=== PATIENT | female | born 1945 | race Caucasian/White ===

== ENCOUNTER → 2018-07-01 | Outpatient (REF) ==
[2018-07-01 10:06] LABS: HEMATOCRIT 30.4 % (36.0-47.0); HEMOGLOBIN 9.4 g/dl (12.0-15.5); MEAN CORPUSCULAR HEMOGLOBIN 27.1 pg (27.0-33.0); MEAN CORPUSCULAR HGB CONC 30.9 g/dl (32.0-36.5); MEAN CORPUSCULAR VOLUME 87.6 fl (80.0-96.0); PLATELET COUNT, AUTOMATED 248 10^3/uL (150-450); RED BLOOD COUNT 3.47 10^6/uL (4.00-5.40); RED CELL DISTRIBUTION WIDTH 14.2 % (11.5-14.5); WHITE BLOOD COUNT 14.1 10^3/uL (4.0-10.0)
[2018-07-01 10:47] LABS: ANION GAP 8 MEQ/L (8-16); BLOOD UREA NITROGEN 8 MG/DL (7-18); CALCIUM LEVEL 8.7 MG/DL (8.8-10.2); CARBON DIOXIDE LEVEL 38 MEQ/L (21-32); CHLORIDE LEVEL 97 MEQ/L (98-107); CREATININE FOR GFR 0.98 MG/DL (0.55-1.30); GLOMERULAR FILTRATION RATE 59.4 (>39); GLUCOSE, FASTING 109 MG/DL (70-100); POTASSIUM SERUM 3.1 MEQ/L (3.5-5.1); SODIUM LEVEL 143 MEQ/L (136-145)
== END ==
DX: I21.4 Non-ST elevation (NSTEMI) myocardial infarction (principal)

== ENCOUNTER → 2018-07-02 | Outpatient (REF) ==
[2018-07-02 09:45] LABS: HEMATOCRIT 30.8 % (36.0-47.0); HEMOGLOBIN 9.4 g/dl (12.0-15.5); MEAN CORPUSCULAR HEMOGLOBIN 26.3 pg (27.0-33.0); MEAN CORPUSCULAR HGB CONC 30.5 g/dl (32.0-36.5); PLATELET COUNT, AUTOMATED 261 10^3/uL (150-450); RED BLOOD COUNT 3.58 10^6/uL (4.00-5.40); RED CELL DISTRIBUTION WIDTH 14.4 % (11.5-14.5); WHITE BLOOD COUNT 8.7 10^3/uL (4.0-10.0)
[2018-07-02 10:41] LABS: ANION GAP 6 MEQ/L (8-16); BLOOD UREA NITROGEN 10 MG/DL (7-18); CALCIUM LEVEL 8.9 MG/DL (8.8-10.2); CARBON DIOXIDE LEVEL 40 MEQ/L (21-32); CHLORIDE LEVEL 96 MEQ/L (98-107); CREATININE FOR GFR 1.06 MG/DL (0.55-1.30); GLOMERULAR FILTRATION RATE 54.2 (>39); GLUCOSE, FASTING 69 MG/DL (70-100); POTASSIUM SERUM 3.8 MEQ/L (3.5-5.1); SODIUM LEVEL 142 MEQ/L (136-145)
== END ==
DX: D72.829 Elevated white blood cell count, unspecified (principal)

== ENCOUNTER → 2018-07-04 | Outpatient (REF) | payer MEDICARE, OTHER ==
[2018-07-04 18:33] LABS: HEMATOCRIT 30.1 % (36.0-47.0); MEAN CORPUSCULAR HEMOGLOBIN 26.5 pg (27.0-33.0); MEAN CORPUSCULAR HGB CONC 29.9 g/dl (32.0-36.5); MEAN CORPUSCULAR VOLUME 88.5 fl (80.0-96.0); PLATELET COUNT, AUTOMATED 241 10^3/uL (150-450); WHITE BLOOD COUNT 6.8 10^3/uL (4.0-10.0)
[2018-07-04 18:48] LABS: CALCIUM LEVEL 8.4 MG/DL (8.8-10.2); CREATININE FOR GFR 1.53 MG/DL (0.55-1.30); GLOMERULAR FILTRATION RATE 35.5 (>39); POTASSIUM SERUM 5.4 MEQ/L (3.5-5.1)
== END ==
PROVIDERS: ATTEND Internal Medicine
DX: R73.9 Hyperglycemia, unspecified (principal)

== ENCOUNTER → 2018-07-05 | Outpatient (REF) ==
[2018-07-05 10:11] LABS: ANION GAP 7 MEQ/L (8-16); BLOOD UREA NITROGEN 14 MG/DL (7-18); CALCIUM LEVEL 8.9 MG/DL (8.8-10.2); CARBON DIOXIDE LEVEL 36 MEQ/L (21-32); CHLORIDE LEVEL 91 MEQ/L (98-107); CREATININE FOR GFR 1.43 MG/DL (0.55-1.30); GLOMERULAR FILTRATION RATE 38.4 (>39); GLUCOSE, FASTING 354 MG/DL (70-100); POTASSIUM SERUM 4.5 MEQ/L (3.5-5.1); SODIUM LEVEL 134 MEQ/L (136-145)
== END ==
DX: D64.9 Anemia, unspecified (principal)

== ENCOUNTER → 2018-07-08 | Outpatient (REF) ==
[2018-07-08 12:01] LABS: HEMATOCRIT 31.6 % (36.0-47.0); HEMOGLOBIN 9.7 g/dl (12.0-15.5); MEAN CORPUSCULAR HEMOGLOBIN 26.6 pg (27.0-33.0); MEAN CORPUSCULAR HGB CONC 30.7 g/dl (32.0-36.5); MEAN CORPUSCULAR VOLUME 86.6 fl (80.0-96.0); PLATELET COUNT, AUTOMATED 304 10^3/uL (150-450); RED BLOOD COUNT 3.65 10^6/uL (4.00-5.40); RED CELL DISTRIBUTION WIDTH 15.3 % (11.5-14.5); WHITE BLOOD COUNT 8.3 10^3/uL (4.0-10.0)
[2018-07-08 12:34] LABS: ANION GAP 7 MEQ/L (8-16); BLOOD UREA NITROGEN 21 MG/DL (7-18); CALCIUM LEVEL 8.7 MG/DL (8.8-10.2); CARBON DIOXIDE LEVEL 33 MEQ/L (21-32); CHLORIDE LEVEL 100 MEQ/L (98-107); GLOMERULAR FILTRATION RATE 31.5 (>39); GLUCOSE, FASTING 189 MG/DL (70-100); POTASSIUM SERUM 4.6 MEQ/L (3.5-5.1); SODIUM LEVEL 140 MEQ/L (136-145)
== END ==
DX: I21.4 Non-ST elevation (NSTEMI) myocardial infarction (principal)

== ENCOUNTER → 2018-07-15 | Outpatient (REF) ==
[2018-07-15 10:41] LABS: HEMATOCRIT 34.7 % (36.0-47.0); HEMOGLOBIN 10.5 g/dl (12.0-15.5); MEAN CORPUSCULAR HEMOGLOBIN 26.6 pg (27.0-33.0); MEAN CORPUSCULAR HGB CONC 30.3 g/dl (32.0-36.5); MEAN CORPUSCULAR VOLUME 88.1 fl (80.0-96.0); PLATELET COUNT, AUTOMATED 374 10^3/uL (150-450); RED BLOOD COUNT 3.94 10^6/uL (4.00-5.40); WHITE BLOOD COUNT 7.4 10^3/uL (4.0-10.0)
[2018-07-15 10:59] LABS: ANION GAP 7 MEQ/L (8-16); BLOOD UREA NITROGEN 14 MG/DL (7-18); CALCIUM LEVEL 9.1 MG/DL (8.8-10.2); CARBON DIOXIDE LEVEL 30 MEQ/L (21-32); CHLORIDE LEVEL 105 MEQ/L (98-107); CREATININE FOR GFR 1.35 MG/DL (0.55-1.30); GLUCOSE, FASTING 44 MG/DL (70-100); POTASSIUM SERUM 4.5 MEQ/L (3.5-5.1); SODIUM LEVEL 142 MEQ/L (136-145)
== END ==
DX: I21.4 Non-ST elevation (NSTEMI) myocardial infarction (principal)

== ENCOUNTER → 2018-10-24 | Outpatient (CLI) | payer MEDICARE, OTHER ==
--- NOTE | 2018-10-24 10:30 | REP ---
Clinical: Dyspnea. Technique: PA and lateral. Comparison: None. Findings: Cardiomegaly is suggested along with diffuse increased interstitial markings, cephalization, indistinct pulmonary vasculature, bibasilar opacities, and small to moderate pleural effusions (left greater than right). Findings most compatible with CHF and pulmonary edema. Differential diagnosis includes multifocal pneumonia. Skeletal structures demonstrate age-related osteopenia and degenerative change. Impression: Findings most compatible with CHF and pulmonary edema. Differential diagnosis includes multifocal pneumonia. Electronically Signed by Andrés Malone MD 10/24/2018 10:20 A
== END ==
LOC: M SMT 09:48
PROVIDERS: ATTEND Nurse Practitioner Family
DX: R91.8 Other nonspecific abnormal finding of lung field (principal); R06.00 Dyspnea, unspecified

== ENCOUNTER → 2018-11-09 | Outpatient (CLI) | payer MEDICARE, OTHER ==
--- NOTE | 2018-11-11 16:31 | SLEEPCENT ---
DATE OF PROCEDURE: 11/09/2018 ORDERED BY: CARINE Novak Nocturnal polysomnography was performed for evaluation of sleep physiology in this patient with a history of excessive somnolence and nonrestorative sleep. Testing was performed on oxygen at 3 liters per minute via nasal cannula. 7 hours and 54 minutes of data were reviewed. There were 273 minutes of sleep identified. Sleep latency was normal at 40 minutes. Rapid eye movement (REM) sleep delayed at 257 minutes. Sleep architecture was fragmented. Overall sleep efficiency was 58.1%. The electrocardiogram showed what appeared to be a sinus rhythm with premature ventricular contractions (PVCs). Average heart rate 62 beats per minute. EEG showed fairly normal waveforms for awake and sleep. There were only 9 respiratory events identified of 10 seconds in duration or greater for an apnea-hypopnea index of 2. Snoring was noted over the course of the study and respiratory related arousals occurred 9.2 times per hour. Significant limb activity was noted. With 4 trains of 30 events limb movement arousal index was 16.9. Snoring was noted during the test but no significant oxygen desaturations with 3 liters of oxygen. IMPRESSION: 1. Periodic limb movement disorder (G47.61). Limb movement arousal index 16.9 pressure. 2. Snoring. RECOMMENDATIONS: Interventions to reduce the frequency arousals from limb activity should improve the quality of the patient's sleep. MAXIMOD
== END ==
LOC: M SLEEP 20:00
PROVIDERS: ATTEND Nurse Practitioner Family
DX: R40.0 Somnolence (principal); R06.83 Snoring; G47.61 Periodic limb movement disorder

== ENCOUNTER → 2018-12-18 | Outpatient (CLI) | payer MEDICARE, OTHER ==
--- NOTE | 2018-12-24 14:34 | SLEEPCENT ---
DATE OF STUDY: 12/18/1989 ORDERING PROVIDER: CARINE Novak Nocturnal polysomnography was performed for the titration of pressure therapy in this patient with obstructive sleep apnea syndrome. Apnea-hypopnea index 6.5. For testing, a [employer] Simplus full face mask of small size was used. 4 cm of water pressure were applied to the circuit, and the lights were extinguished. 7 hours and 23 minutes of data were reviewed. There were 223 minutes of sleep identified. Sleep latency was prolonged at 96 minutes. The patient did not achieve rapid eye movement (REM) sleep. Sleep architecture was poor early in the study, improved later in the test but with persistence of fragmentation. Overall sleep efficiency was 51.7%. The patient's electrocardiogram showed a sinus rhythm with an average heart rate of 60 beats per minute. Electroencephalogram (EEG) showed normal waveforms for awake and sleep. Respiratory events were fully palliated with continuous positive airway pressure (CPAP) at a pressure of 14. Persistent oxygen desaturations seen at that level prompted the addition of supplemental oxygen. Best sleep was seen on a CPAP pressure at 14 with 2 liters of oxygen bled through the system. There was significant limb activity noted. Two trains of 30 events and a limb movement arousal index of 13.2. IMPRESSION: Obstructive sleep apnea syndrome (G47.33) RECOMMENDATION: Nightly use of pressure therapy, 14 cm of water with 2 liters of oxygen bled through the system to address hypoventilatory oxygen desaturation.
== END ==
LOC: M SLEEP 19:33
PROVIDERS: ATTEND Nurse Practitioner Family
DX: G47.33 Obstructive sleep apnea (adult) (pediatric) (principal)

== ENCOUNTER → 2019-04-16 | Outpatient (REF) | payer MEDICARE, OTHER | LOC: M SMT 17:21 | PROVIDERS: ATTEND Urology | DX: N12 Tubulo-interstitial nephritis, not specified as acute or chronic (principal) | CPT/HCPCS: 81002; 87086; G0463 ==

== ENCOUNTER → 2019-05-08 | Outpatient (REF) | payer MEDICARE, OTHER ==
[~2019-05-08] MED LIST: ASPI81TA85 PO; BUME2TAB3 PO; CALCCHW4 PO; FERR325T16 PO; FLUO40CA PO; LANTINJ4 SC; LISI-538 PO; MELA5CAP2 PO; METO50TA7 PO; NOVO70VL SC; PRAV40TA2 PO; SPIR-10 PO
[2019-05-08 18:20] LABS: FERRITIN 31 NG/ML (8-252); FOLATE 7.3 NG/ML; IRON (FE) 27 UG/DL (50-170); PERCENT SATURATION 7.3 % (13.2-45.0); TOTAL IRON BINDING CAPACITY 371 UG/DL (250-450); VITAMIN B12 LEVEL 249 PG/ML
[2019-05-08 18:29] LABS: TOTAL PROTEIN,RANDOM URINE 113.3 MG/DL (0.0-12.0); URINE TOTAL PROTEIN 113.3 MG/DL (0-12)
[2019-05-09 08:25] LABS: URINE VOLUME RANDOM ML
[2019-05-11 10:42] LABS: HEPATITIS B SURFACE ANTIBODY NEGATIVE (POSITIVE)
[2019-05-11 10:52] LABS: HEPATITIS B SURFACE ANTIGEN NEGATIVE (NEGATIVE)
[2019-05-11 11:19] LABS: HEPATITIS C VIRUS ABY INDEX 0.1 INDEX (<0.8)
[2019-05-11 11:20] LABS: HEPATITIS B CORE ANTIBODY IGM NEGATIVE (NEGATIVE)
[2019-05-12 11:02] LABS: ALBUMIN 3.25 GM/DL (3.29-5.55); ALBUMIN % 54.2 % (55.8-66.1); ALPHA-1-GLOBULIN % 6.9 % (2.9-4.9); ALPHA-1-GLOBULINS 0.41 GM/DL (0.17-0.41); ALPHA-2-GLOBULINS 0.72 GM/DL (0.42-0.99); BETA-1-GLOBULINS 0.43 GM/DL (0.28-0.60); BETA-1-GLOBULINS % 7.2 % (4.7-7.2); BETA-2-GLOBULINS 0.26 GM/DL (0.19-0.55); BETA-2-GLOBULINS % 4.3 % (3.2-6.5); GAMMA GLOBULIN % 15.4 % (11.1-18.8); GAMMA GLOBULINS 0.92 GM/DL (0.65-1.58)
[2019-05-14 13:51] LABS: UPEP INTERPRETATION NO M-SPIKE NOTED
[2019-05-16 00:06] LABS: ANCA-ATYPICAL <1:20 titer (Neg:<1:20); ANTI-GLOMERULAR BASEMENT MEMB 6 units (0-20); ANTINUCLEAR ANTIBODIES DIRECT Negative (Negative); CYTOPLASMIC NEUTROP AB ANCA-C <1:20 titer (Neg:<1:20); PERINUCLEAR AB ANCA-P <1:20 titer (Neg:<1:20)
== END ==
LOC: M LAB REF 16:55
PROVIDERS: ATTEND Internal Medicine Nephrology
DX: R80.9 Proteinuria, unspecified (principal); D64.9 Anemia, unspecified

== ENCOUNTER 2019-05-18 09:34 | Outpatient (CLI) | payer MEDICARE, OTHER ==
[2019-05-18] VITALS (8 sets, daily range): BP systolic 130–177; BP diastolic 55–77
[~2019-05-18] VITALS: Ht 170.2 cm; Wt 143.5 kg
[2019-05-18] MEDS ORDERED: CALCCHW4 PO (10:48)
[2019-05-18] MEDS ORDERED: MELA5CAP2 PO (10:48)
[2019-05-18] MEDS ORDERED: BUME2TAB3 PO (10:48)
[2019-05-18] MEDS ORDERED: ASPI81TA85 PO (10:48)
[2019-05-18] MEDS ORDERED: LISI-538 PO (10:48)
[2019-05-18] MEDS ORDERED: PRAV40TA2 PO (10:48)
[2019-05-18] MEDS ORDERED: METO50TA7 PO (10:48)
[2019-05-18] MEDS ORDERED: SPIR-10 PO (10:48)
[2019-05-18] MEDS ORDERED: NOVO70VL SC (10:48)
[2019-05-18] MEDS ORDERED: FERR325T16 PO (10:48)
[2019-05-18] MEDS ORDERED: LANTINJ4 SC (10:48)
[2019-05-18] MEDS ORDERED: FLUO40CA PO (10:48)
[2019-05-18] MEDS ORDERED: IRON SUCROSE 175 MG in NS 100 ML IV ONE (11:00)
[2019-05-18] MEDS ORDERED: IRON SUCROSE 25 MG in NS 50 ML IV ONE (11:00)
== END 2019-05-18 15:40 ==
LOC: M INFU 09:34
PROVIDERS: ATTEND Internal Medicine Nephrology
DX: D50.9 Iron deficiency anemia, unspecified (principal); Z79.899 Other long term (current) drug therapy
CPT/HCPCS: 96365; 96366; J1756

== ENCOUNTER 2019-05-25 09:38 | Outpatient (CLI) | payer MEDICARE, OTHER ==
[~2019-05-25] VITALS: Ht 170.2 cm; Wt 143.5 kg
[2019-05-25 09:40] VITALS: BP 155/62
[2019-05-25] MEDS ORDERED: IRON SUCROSE 200 MG in NS 100 ML IV ONE (10:15)
[2019-05-25 10:45] VITALS: BP 149/65
[2019-05-25] MEDS ORDERED: VENO20IN IV (11:11)
[2019-05-25 11:45] VITALS: BP 152/87
[2019-05-25 12:45] VITALS: BP 151/85
[2019-05-25 13:30] VITALS: BP 148/65
[2019-05-25 14:05] VITALS: BP 148/68
== END 2019-05-25 14:05 | disposition home or self-care (01) ==
LOC: M INFU 09:38
PROVIDERS: ATTEND Internal Medicine Nephrology
DX: D50.9 Iron deficiency anemia, unspecified (principal)
CPT/HCPCS: 96365; 96366; J1756

== ENCOUNTER 2019-07-07 13:07 | Outpatient (RCR) | payer MEDICARE, OTHER ==
[~2019-07-07 13:07] MED LIST changes: +VENO20IN IV
== END 2019-07-25 ==
LOC: M PT 13:07
PROVIDERS: ATTEND Surgery
DX: I89.0 Lymphedema, not elsewhere classified (principal)

== ENCOUNTER → 2019-08-17 | Outpatient (REF) | payer MEDICARE, OTHER ==
[~2019-08-17] MED LIST changes: +CEPH250T PO; +CEPH500C PO; +LASI20TA3 PO; +PROZ20CA11 PO
== END ==
LOC: M SMT 13:24
PROVIDERS: ATTEND Nurse Practitioner Women's Health
DX: N13.0 Hydronephrosis with ureteropelvic junction obstruction (principal); Z01.818 Encounter for other preprocedural examination

== ENCOUNTER 2019-08-27 09:45 | Day surgery (SDC) | payer MEDICARE, OTHER ==
[~2019-08-27] VITALS: Ht 170.2 cm; Wt 116.0 kg
[~2019-08-27 09:45] MED LIST changes: -CEPH250T PO; -CEPH500C PO; +CONRAY-60 60% 50ML VIAL (Q9961) As Ordered ONE; +LIDOCAINE 1% MDV 20ML VIAL SQ PRN; +NS 1,000 ML IV SCH
[2019-08-27] MEDS ORDERED: LIDOCAINE 2% 5ML JELLY UROJET As Ordered ONE (10:06)
[2019-08-27] MEDS ORDERED: MIDAZOLAM INJ 2 MG/2 ML VIAL (J2250) As Ordered ONE (10:09)
[2019-08-27] MEDS ORDERED: LIDOCAINE 2% INJ 100 MG/5 ML SDV (FOR ANES.) As Ordered ONE (10:09)
[2019-08-27] MEDS ORDERED: ONDANSETRON 4MG/2ML VIAL (J2405) As Ordered ONE (10:09)
[2019-08-27] MEDS ORDERED: PROPOFOL 200 MG/20 ML VIAL As Ordered ONE (10:09)
[2019-08-27] MEDS ORDERED: fentaNYL 100 MCG/2 ML INJECTION (J3010) As Ordered ONE (10:10)
[2019-08-27] MEDS ORDERED: ceFAZolin 2 GM/D5W 50 ML IV BAG (J0690 PER 500MG) As Ordered ONE (10:12)
[2019-08-27] MEDS ORDERED: CEPH500C PO (10:30)
[2019-08-27] MEDS ORDERED: CEPH250T PO (10:30)
[2019-08-27] MEDS ORDERED: ceFAZolin SOD 2 GM in IV 1 EA IV ONE (10:45)
--- NOTE | 2019-08-27 11:27 | REP ---
Retrograde pyelogram: Three views. History: [place] nephrosis. 15 seconds of fluoroscopy time is reported. Findings: A sequence of three last image hold fluoroscopically obtained spot radiographs of the abdomen document right ureteral cannulation, contrast injection, and double pigtail stent placement. There is right-sided hydronephrosis. Electronically Signed by Chris Wheeler MD 08/27/2019 11:18 A
--- NOTE | 2019-08-27 11:54 | RO ---
DATE OF PROCEDURE: 08/27/2019 PREPROCEDURE DIAGNOSIS: Right hydronephrosis. POSTPROCEDURE DIAGNOSIS: Right hydronephrosis. PROCEDURE: Cystoscopy, right retrograde pyelogram with intraoperative interpreted images, right ureteral stent exchange. SURGEON: Dr. Dario Falcon. COLLEGE TUTOR: None. ANESTHESIA: Monitored anesthesia care (MAC). 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 She is managed with chronic ureteral stenting. She is here for a stent exchange. DESCRIPTION OF PROCEDURE: The patient brought to the operating room and MAC anesthesia was administered. Prophylactic antibiotics were infused. She was then placed in dorsal lithotomy position and prepped and draped in the usual sterile fashion. A rigid cystoscope was inserted through the urethral meatus and advanced into the bladder. Once inside the bladder a guidewire was advanced up right collecting system along side the previously placed stent. The stent was then removed completely intact. I then advanced a 5-Surinamese open ureteral catheter over the wire into the right collecting system. The wire was then removed and a retrograde pyelogram was performed. It was notable for moderate right hydronephrosis with no extravasation. I then advanced the wire back up the ureteral catheter. The ureteral catheter was then removed. I then utilized the wire to advance a 7-Surinamese x 22 cm black silicone ureteral stent into the right collecting system. The wire was removed and there were adequate curls of the stent in the right renal pelvis and in the bladder. The bladder was emptied of all fluids and this marked the conclusion of the procedure. The patient was then taken out of the dorsal lithotomy position, awakened from anesthesia and transported to the recovery room in stable condition. ESTIMATED BLOOD LOSS: 0 mL. COMPLICATIONS: None. SPECIMENS: None. PLAN: We will intend to keep her stent in for hopefully up to a year and change the stent at that time. We will get a followup renal ultrasound in 6 months to confirm that the stent is keeping her kidney draining. LAINEY
[2019-08-27 12:20] VITALS: BP 145/63
== END 2019-08-27 12:23 | disposition home or self-care (01) ==
LOC: M SDC 09:45
PROVIDERS: ATTEND Urology
DX: N13.5 Crossing vessel and stricture of ureter without hydronephrosis (principal); I10 Essential (primary) hypertension; I25.10 Atherosclerotic heart disease of native coronary artery without angina pectoris; E11.9 Type 2 diabetes mellitus without complications; E78.5 Hyperlipidemia, unspecified; J44.9 Chronic obstructive pulmonary disease, unspecified; Z79.4 Long term (current) use of insulin; Z79.82 Long term (current) use of aspirin; Z79.899 Other long term (current) drug therapy; F41.9 Anxiety disorder, unspecified; F32.9 Major depressive disorder, single episode, unspecified
CPT/HCPCS: 52332; 74420; C1769; C2617; J0690; J2250; J2405; J3010; Q9961

== ENCOUNTER → 2020-01-11 | Outpatient (REF) | payer MEDICARE, OTHER ==
[~2020-01-11] MED LIST changes: +CEPH250T PO; +CEPH500C PO; -CONRAY-60 60% 50ML VIAL (Q9961) As Ordered ONE; -LIDOCAINE 1% MDV 20ML VIAL SQ PRN; -NS 1,000 ML IV SCH
== END ==
LOC: M LAB REF 17:06
PROVIDERS: ATTEND Internal Medicine Nephrology
DX: N39.0 Urinary tract infection, site not specified (principal)

== ENCOUNTER → 2020-03-02 | Outpatient (CLI) | payer MEDICARE, OTHER ==
[~2020-03-02] MED LIST changes: -ASPI81TA85 PO; +ASPI81TA86 PO
--- NOTE | 2020-03-03 02:45 | REP ---
RENAL ULTRASOUND: Real-time sonographic evaluation of kidneys performed. Right kidney is smaller than the left, right kidney measuring 9.0 x 5.7 x 4.8 cm and left kidney 11.3 x 3.7 x 4.8 cm. There is no left hydronephrosis. There is severe right hydronephrosis with proximal hydroureter. There is cortical thinning of the right kidney. Urinary bladder is not well distended and not well evaluated. There does appear to be a stent in the bladder. I also suspect there is a stent in the dilated right renal collecting system. IMPRESSION: Severe right hydronephrosis.
== END ==
LOC: M PLAIMG 12:53
PROVIDERS: ATTEND Urology
DX: N13.0 Hydronephrosis with ureteropelvic junction obstruction (principal)

== ENCOUNTER → 2020-03-25 | Outpatient (CLI) | payer MEDICARE, OTHER ==
[2020-05-06 07:00] LABS: HEMOGLOBIN 11.8 g/dl (12.0-15.5); MEAN CORPUSCULAR HEMOGLOBIN 27.8 pg (27.0-33.0); MEAN CORPUSCULAR HGB CONC 31.1 g/dl (32.0-36.5); MEAN CORPUSCULAR VOLUME 89.6 fl (80.0-96.0); PLATELET COUNT, AUTOMATED 302 10^3/uL (150-450); RED BLOOD COUNT 4.24 10^6/uL (4.00-5.40); WHITE BLOOD COUNT 8.4 10^3/uL (4.0-10.0)
--- NOTE | 2020-05-17 16:03 | ECGEPIP ---
[facility] Test Date: 2020-03-25 Pat Name: RAUL EUBANKS Department: Room: - Gender: Female Milling General Superintendent: IMER : 1945 Requested By: WILBER Thrasher Order Number: [id number] Reading MD: Omar Siddiqui Measurements Intervals [place] Rate: 64 P: 68 ND: 189 QRS: 65 QRSD: 92 T: 45 QT: 442 QTc: 458 Interpretive Statements SINUS RHYTHM NORMAL ECG SEE SCANNED DOWNTIME REPORT.
[2020-06-13 15:55] LABS: GLUCOSE, FASTING SEE SEPARATE REPORT
== END ==
LOC: M RAD 12:56
PROVIDERS: ATTEND Urology
DX: N13.30 Unspecified hydronephrosis (principal); Z79.82 Long term (current) use of aspirin; Z79.899 Other long term (current) drug therapy

== ENCOUNTER → 2020-03-30 | Outpatient (REF) | payer MEDICARE, OTHER ==
[2020-05-26 14:08] LABS: AMORPHOUS SEDIMENT SMALL (NEGATIVE); APPEARANCE, URINE TURBID (CLEAR); BACTERIA, URINE AUTO 3+ (NEGATIVE); BILIRUBIN, URINE AUTO 1+ (NEGATIVE); BLOOD, URINE BLOOD NEGATIVE (NEGATIVE); COLOR, URINE AMBER (YELLOW); GLUCOSE, URINE (UA) AUTO NEGATIVE (NEGATIVE); KETONE, URINE AUTO NEGATIVE (NEGATIVE); LEUKOCYTE ESTERASE, URINE AUTO 3+ (NEGATIVE); MUCUS, URINE LARGE (NEGATIVE); NITRITE, URINE AUTO NEGATIVE (NEGATIVE); PROTEIN, URINE AUTO 3+ mg/dL (NEGATIVE); RBC, URINE AUTO 43 /HPF (0-3); SPECIFIC GRAVITY URINE AUTO 1.014 (1.002-1.035); SQUAMOUS EPITHELIAL CELL UR AU 3 /HPF (0-6); TRIPLE PHOSPHATE CRYSTALS SMALL; UROBILINOGEN, URINE AUTO 0.2 mg/dL (0.0-2.0); WBC, URINE AUTO 85 /HPF (0-3)
== END ==
LOC: M SMT 11:20
PROVIDERS: ATTEND Nurse Practitioner Family
DX: N39.0 Urinary tract infection, site not specified (principal)

== ENCOUNTER 2020-04-01 10:00 | Day surgery (SDC) | payer MEDICARE, OTHER ==
[~2020-04-01 10:00] MED LIST changes: +ceFAZolin 2 GM/D5W 50 ML IV BAG (J0690 PER 500MG) As Ordered ONE; +ceFAZolin 2 GM/D5W 50 ML IV BAG (J0690 PER 500MG) ONE
[2020-04-01] MEDS ORDERED: propofoL 200 MG/20 ML VIAL As Ordered ONE ×2 (10:46→13:20)
[2020-04-01] MEDS ORDERED: LIDOCAINE 2% 100MG/5ML SDV (FOR ANES.) As Ordered ONE ×2 (10:46→13:20)
[2020-04-01] MEDS ORDERED: ONDANSETRON 4MG/2ML VIAL As Ordered ONE ×2 (10:46→13:20)
[2020-04-01] MEDS ORDERED: fentaNYL 100 MCG/2 ML INJECTION (J3010) As Ordered ONE ×2 (10:47→13:21)
[2020-04-01] MEDS ORDERED: MIDAZOLAM INJ 2MG/2ML VIAL (J2250 PER 1MG) As Ordered ONE ×2 (10:47→13:21)
[2020-04-01] MEDS ORDERED: CONRAY-60 60% 50ML VIAL (Q9961) As Ordered ONE (12:49)
[2020-04-01] MEDS ORDERED: LIDOCAINE 2% 5ML JELLY UROJET As Ordered ONE (12:49)
--- NOTE | 2020-05-20 10:25 | REP ---
C-ARM VIEWS ABDOMEN AND PELVIS DURING PLACEMENT OF RIGHT URETERAL STENT TECHNIQUE: Three C-arm views abdomen and pelvis performed. FINDINGS: Contrast partially opacifies a dilated right pelvicalyceal system. A right ureteral stent is in good position with the proximal end coiled in the region of the right renal pelvis and the distal end in the region of the urinary bladder. There was 40 seconds of fluoroscopy time utilized. MTDD
--- NOTE | 2020-06-02 11:20 | RO ---
DATE OF OPERATION: 04/01/2020 PREPROCEDURE DIAGNOSIS: Hydronephrosis. POSTPROCEDURE DIAGNOSIS: Hydronephrosis. PROCEDURE: Cystoscopy, right ureteral stent exchange, right retrograde pyelogram with intraoperative interpretation of images. SURGEON: Dario Falcon MD DRY HOUSE ATTENDANT: None. ANESTHESIA: MAC. OPERATIVE INDICATIONS: This is a 74-year-old female with chronic right hydronephrosis from likely ureteropelvic junction obstruction, which is managed with chronic ureteral stenting. She presents today for stent exchange. DESCRIPTION OF PROCEDURE: The patient was brought to the operating room and MAC anesthesia was administered. Prophylactic antibiotics were infused. She was then placed in the dorsal lithotomy position, and prepped and draped in the usual sterile fashion. A rigid cystoscope was inserted into the urethral meatus and advanced into the bladder. The previously placed stent was seen. A guidewire was advanced up the right collecting system along side of the stent. The black silicone stent was then completely removed from the right collecting system. Of note, this black silicone stent appeared to be completely clogged, which explains why it has not been draining out the kidney well recently. At this point, a 5-Northern Irish open-ended ureteral catheter was advanced over the wire into the right collecting system. The wire was then removed and then ureteral catheter was utilized to aspirate approximately 90-100 mL of urine from the right kidney. Some of this urine appeared to have a large amount of debris in it. This urine was sent off for culture from the right kidney. Once this was done, a retrograde pyelogram was performed and was notable for moderate right hydronephrosis with no extravasation. I then advanced the guidewire back into the right collecting system. The 5-Northern Irish open-ended ureteral catheter was removed. I then utilized the wire to advance a 7-Northern Irish x 22 cm black silicone JJ ureteral stent into the right collecting system. The wire was removed and there were adequate curls of the stent in the right renal pelvis and the bladder. The bladder was emptied of all fluids and this marked the conclusion of the procedure. The patient was taken out of the dorsolithotomy position, awakened from anesthesia, and transferred to the recovery room in stable condition. ESTIMATED BLOOD LOSS: 5 mL. COMPLICATIONS: None. SPECIMENS: Urine from right kidney for culture. PLAN: I will have the patient follow-up with the urology clinic in three months with a renal ultrasound prior. If there is no hydronephrosis at that time, we will keep her stent in a little bit longer. MAXIMOD
== END 2020-04-01 15:00 | disposition home or self-care (01) ==
LOC: M SDC 10:00
PROVIDERS: ATTEND Urology
DX: N13.39 Other hydronephrosis (principal); E11.69 Type 2 diabetes mellitus with other specified complication; I50.32 Chronic diastolic (congestive) heart failure; I25.10 Atherosclerotic heart disease of native coronary artery without angina pectoris; E78.5 Hyperlipidemia, unspecified; Z79.4 Long term (current) use of insulin; Z79.899 Other long term (current) drug therapy; E66.9 Obesity, unspecified; I11.9 Hypertensive heart disease without heart failure
CPT/HCPCS: 52332; 74420; 88108; C1769; C2617; J0690; J2250; J2405; J3010; Q9961

== ENCOUNTER → 2020-07-06 | Outpatient (CLI) | payer MEDICARE, OTHER ==
[~2020-07-06] MED LIST changes: -ceFAZolin 2 GM/D5W 50 ML IV BAG (J0690 PER 500MG) As Ordered ONE; -ceFAZolin 2 GM/D5W 50 ML IV BAG (J0690 PER 500MG) ONE
--- NOTE | 2020-07-07 07:16 | REP ---
INDICATION: HYDRONEPHROSIS, UPJ OBSTRUCTION COMPARISON: No prior examinations available for comparison. TECHNIQUE: Axial noncontrast images from the lung bases to the pubic symphysis with coronal and sagittal reformations. This CT examination was performed using the following dose reduction techniques: Automated exposure control, adjustment of mA and/or kv according to the patient's size, and use of iterative reconstruction technique. FINDINGS: The left kidney/ureter appears normal by noncontrast evaluation. The right kidney demonstrates chronic atrophic change with mild chronic perinephric stranding and hydronephrosis. A right ureteral stent is identified in satisfactory position and a small amount of layering nephroliths are identified in the dependent portion of the right renal pelvis as well as 1 mm calculus in posterior calyx. The left ureter appears relatively normal and without dilatation. Liver, spleen, pancreas, gallbladder, and bilateral adrenal glands are normal. Incidental splenic calcifications consistent with prior granulomatous disease. Small hiatal hernia at the gastroesophageal junction is suggested. The enteric system is without obstruction or acute inflammatory process. Colonic/sigmoid diverticulosis noted without acute diverticulitis. Pelvis demonstrates normal bladder and age-appropriate uterus/adnexa with small myometrial calcifications possibly suggesting underlying fibroid. No ascites. No free air. No significant adenopathy. Abdominal aorta without aneurysm. Skeletal structures demonstrate age-related changes as well as significant chronic changes to the right hip which may reflect old injury and/or avascular necrosis. Lung bases are relatively clear. IMPRESSION: 1. Right ureteral stent and changes to the right kidney as described above appear relatively chronic and without obvious acute hydroureteronephrosis. Small nonobstructing right renal calculi as described. Normal appearance of the left kidney and bladder. 2. Diverticulosis. <Electronically signed by Andrés Malone > 07/07/20 [id number]
== END ==
LOC: M RAD 17:26
PROVIDERS: ATTEND Nurse Practitioner Women's Health
DX: N20.0 Calculus of kidney (principal); N13.39 Other hydronephrosis; Z96.0 Presence of urogenital implants

== ENCOUNTER → 2020-09-27 | Outpatient (CLI) | payer MEDICARE, OTHER ==
--- NOTE | 2020-09-27 12:48 | REP ---
INDICATION: HYDRONEPHROSIS. With ureteropelvic junction obstruction. COMPARISON: Comparison study March 02, 2020. Comparison CT study July 06, 2020.. TECHNIQUE: Urinary tract sonography. FINDINGS: Scanning at the level of the urinary bladder shows no abnormality. Exam quality is significantly reduced by patient body habitus. Renal cortical echogenicity pattern is normal bilaterally and contours are smooth. There is moderate hydronephrosis affecting the right kidney. The right ureteral stent is not seen sonographically.. The right kidney measures 12.0 x 5.2 x 4.8 cm. Left renal dimensions are 11.5 x 4.7 x 4.8 cm. No left-sided hydronephrosis is seen. No mass or cyst is seen on either side. IMPRESSION: Moderate right-sided hydronephrosis seen. Stent not visualized.. No hydronephrosis on the left. Exam quality is markedly inhibited by patient body habitus. <Electronically signed by Eliezer Wheeler > 09/27/20 [id number]
== END ==
LOC: M RAD 11:04
PROVIDERS: ATTEND Nurse Practitioner Women's Health
DX: N13.30 Unspecified hydronephrosis (principal)

== ENCOUNTER → 2021-01-01 | Outpatient (CLI) | payer MEDICARE, OTHER ==
[~2021-01-01] MED LIST changes: +FERR324T21 PO; -FERR325T16 PO; -LISI-538 PO; +LISI-898; +LISI20TA33 PO; +NITR9CAP3 PO; +SEMA3TAB; +SIMV40TA20
== END ==
LOC: M LABSMTC 10:06
PROVIDERS: ATTEND Anesthesiology
DX: Z01.812 Encounter for preprocedural laboratory examination (principal); Z20.822 Contact with and (suspected) exposure to COVID-19

== ENCOUNTER 2021-01-06 06:11 | Day surgery (SDC) | payer MEDICARE, OTHER ==
[~2021-01-06] VITALS: Ht 170.2 cm; Wt 102.1 kg
[~2021-01-06 06:11] MED LIST changes: +LIDOCAINE 1% MDV 20ML VIAL SQ PRN; +LR 1,000 ML IV ONE; +ceFAZolin SOD 1 GM in D5W MINI-BAG PLUS 50 ML IV ONE; +ceFAZolin SOD 2 GM in IV 1 EA IV ONE
[2021-01-06] MEDS ORDERED: fentaNYL 100 MCG/2 ML INJECTION (J3010) As Ordered ONE (07:11)
[2021-01-06] MEDS ORDERED: MIDAZOLAM INJ 2MG/2ML VIAL (J2250 PER 1MG) As Ordered ONE (07:11)
[2021-01-06] MEDS ORDERED: propofoL 200 MG/20 ML VIAL As Ordered ONE (07:11)
[2021-01-06] MEDS ORDERED: ROCURONIUM BROMIDE 50 MG/5 ML VIAL As Ordered ONE (07:12)
[2021-01-06] MEDS ORDERED: ePHEDrine SULFATE 25 MG/5 ML(5MG/ML) SYRINGE As Ordered ONE (07:12)
[2021-01-06] MEDS ORDERED: PHENYLephrine 500MCG 5ML (100MCG/ML) SYRINGE As Ordered ONE (07:12)
[2021-01-06] MEDS ORDERED: LIDOCAINE 2% 100MG/5ML SDV (FOR ANES.) As Ordered ONE (07:12)
[2021-01-06] MEDS ORDERED: CONRAY-60 60% 50ML VIAL (Q9961) As Ordered ONE (07:15)
[2021-01-06] MEDS ORDERED: ONDANSETRON 4MG/2ML VIAL As Ordered ONE (07:16)
[2021-01-06] MEDS ORDERED: NITR100C2 PO (07:17)
[2021-01-06] MEDS ORDERED: LIDOCAINE 2% 5ML JELLY UROJET As Ordered ONE (07:18)
--- NOTE | 2021-01-06 08:25 | REP ---
INDICATION: RIGHT URETERAL STENT. COMPARISON: 04/01/2020. TECHNIQUE: Two C-arm views abdomen and pelvis. FINDINGS: Contrast partially opacifies the right pelvocaliceal system. Right ureteral stent is visualized. The proximal end is coiled in the right renal pelvis. The distal end is coiled in the urinary bladder. IMPRESSION: 21 seconds fluoroscopy time utilized. <Electronically signed by Kj Louis > 01/06/21 [id number]
--- NOTE | 2021-01-06 08:34 | ROOPDOC ---
[facility] Report Of Operation Report of Operation DATE OF PROCEDURE: 01/06/21 PREPROCEDURE DIAGNOSIS: Hydronephrosis. POSTPROCEDURE DIAGNOSIS: Hydronephrosis. PROCEDURE: Cystoscopy, right ureteral stent exchange, right retrograde pyelogram with intraoperative interpretation of images. SURGEON: Wilber Villa MD DRIER BELT CONVEYOR: None. ANESTHESIA: MAC. OPERATIVE INDICATIONS: This is a 75-year-old female with chronic right hydronephrosis from likely ureteropelvic junction obstruction, which is managed with chronic ureteral stenting. She presents today for stent exchange. DESCRIPTION OF PROCEDURE: The patient was brought to the operating room and MAC anesthesia was administered. Prophylactic antibiotics were infused. She was then placed in the dorsal lithotomy position, and prepped and draped in the usual sterile fashion. A rigid cystoscope was inserted into the urethral meatus and advanced into the bladder. The previously placed stent was seen. A guidewire was advanced up the right collecting system along side of the stent. The black silicone stent was then completely removed from the right collecting system. At this point, a 5-Tanzanian open-ended ureteral catheter was advanced over the wire into the right collecting system. The wire was then removed and then ureteral catheter was utilized to aspirate approximately 10 mL of urine from the right kidney. The urine did not appear purulent. This urine was sent off for culture from the right kidney. Once this was done, a retrograde pyelogram was performed and was notable for moderate right hydronephrosis with no extravasation. I then advanced the guidewire back into the right collecting system. The 5-Tanzanian open- ended ureteral catheter was removed. I then utilized the wire to advance a 7- Tanzanian x 22 cm black silicone JJ ureteral stent into the right collecting system. The wire was removed and there were adequate curls of the stent in the right renal pelvis and the bladder. The bladder was emptied of all fluids and this marked the conclusion of the procedure. The patient was taken out of the dorsolithotomy position, awakened from anesthesia, and transferred to the recovery room in stable condition. ESTIMATED BLOOD LOSS: 5 mL. COMPLICATIONS: None. SPECIMENS: Urine from right kidney for culture. PLAN: I will have the patient follow-up with the urology clinic in a few months to get her set up for stent change in 6 months. WILBER VILLA MD January 06, 2021 08:34
[2021-01-06 09:19] VITALS: BP 175/71
== END 2021-01-06 09:24 | disposition home or self-care (01) ==
LOC: M SDC 06:11
PROVIDERS: ATTEND Urology
DX: N13.30 Unspecified hydronephrosis (principal); I10 Essential (primary) hypertension; E78.5 Hyperlipidemia, unspecified; E11.9 Type 2 diabetes mellitus without complications; F41.9 Anxiety disorder, unspecified; F32.9 Major depressive disorder, single episode, unspecified; Z99.81 Dependence on supplemental oxygen; Z79.4 Long term (current) use of insulin; Z79.899 Other long term (current) drug therapy
CPT/HCPCS: 52332; 74420; 87088; C1769; C2617; J0690; J2250; J2370; J2405; J3010; Q9961